=== PATIENT | female | born 1975 | race American Indian/Alaskan Native ===

== ENCOUNTER 2017-04-05 11:05 | Emergency (ER) | payer OTHER ==
[2017-04-05 11:06] VITALS: BMI 36.0
[2017-04-05 11:13] VITALS: BP 153/76; PULSE 101; RESP 18; TEMP 99.1; O2SAT 99
--- NOTE | 2017-04-05 12:43 | C.PDOC ---
History Of Present Illness 04/05/2017 Lashaun Rivas is a 42 year old female, whose past medical history includes diabetes and hypertension, presents to the emergency department complaining of right ear pain and itchiness for the past two days. Patient reports the pain became worse last night. Patient notes cleaning her ear with a Q-tip but it became worse. Patient denies any change in hearing, fever, throat pain, shortness of breath, nausea, vomiting, diarrhea, or other complaints. Time Seen by Provider: 04/05/17 11:20 Chief Complaint (Nursing): ENT Problem History Per: Patient History/Exam Limitations: None Onset/Duration Of Symptoms: Days (2 days) Current Symptoms Are (Timing): Still Present Quality (Ear): Redness, Other (itchiness) Symptoms Have Been: Continuous Past Medical History Reviewed: Historical Data, Nursing Documentation, Vital Signs Vital Signs: Last Vital Signs Temp 99.1 F 04/05/17 11:10 Pulse 101 H 04/05/17 11:10 Resp 18 04/05/17 11:10 BP 153/76 H 04/05/17 11:10 Pulse Ox 99 04/05/17 19:21 - Medical History PMH: Anemia, Arthritis, Diabetes, Gall Bladder Disease, HTN Family History: States: Unknown Family Hx - Social History Hx Tobacco Use: No Hx Alcohol Use: Yes Hx Substance Use: No - Immunization History Hx Tetanus Toxoid Vaccination: No Hx Influenza Vaccination: No Hx Pneumococcal Vaccination: No Review Of Systems Constitutional: Negative for: Fever ENT: Positive for: Ear Pain (right ear pain and itchiness). Negative for: Ear Discharge, Throat Pain, Throat Swelling Cardiovascular: Negative for: Chest Pain Respiratory: Negative for: Shortness of Breath Gastrointestinal: Negative for: Nausea, Vomiting, Abdominal Pain Genitourinary: Negative for: Dysuria Musculoskeletal: Negative for: Neck Pain Neurological: Negative for: Dizziness Physical Exam - Physical Exam Appears: Well, Non-toxic, No Acute Distress Skin: Normal Color, Warm, Dry Head: Atraumatic, Normacephalic Eye(s): bilateral: Normal Inspection, PERRL, EOMI Ear(s): Left: Normal, Right: TM Erythema (mild erythema to medial canal ) Nose: Normal Oral Mucosa: Moist Throat: Normal, No Erythema Neurological/Psych: Oriented x3, Normal Speech, Normal Motor, Normal Sensation ED Course And Treatment O2 Sat by Pulse Oximetry: 99 (room air) Pulse Ox Interpretation: Normal Medical Decision Making Medical Decision Makin04/05/2017 Impression: 42 year old female with right ear mild erythema to medial canal. Plan: -- Reassess and disposition Disposition - Disposition Referrals: Jeremy Alejandra [Medical Doctor] - Disposition: HOME/ ROUTINE Disposition Time: 12:41 Condition: STABLE Additional Instructions: Recommend no qtip, fingers/nails in ears. Use drops as prescribed. Take diphenhydramine 25 mg by mouth every 6 hours for itch- may cause drowsiness, no driving or operating machinery advised. Follow up with your PMD. Continue taking medication for diabetes and blood pressure. Prescriptions: DiphenhydrAMINE [Benadryl] 25 mg PO Q6 #30 cap Neomycin/Polymyxin/Hydrocortis [Cortisporin Otic Susp] 4 drop AD QID #1 bottle Instructions: Otitis Externa (ED) Forms: [employer] (Welsh) - Clinical Impression Clinical Impression: Otitis externa of right ear - Scribe Statement The provider has reviewed the documentation as recorded by the Scribe 04/05/2017 Scribe Attestation: Kelle Davidson MD Scribe Attestation: All medical record entries made by the Scribe were at my direction and personally dictated by me. I have reviewed the chart and agree that the record accurately reflects my personal performance of the history, physical exam, medical decision making, and the department course for this patient. I have also personally directed, reviewed, and agree with the discharge instructions and disposition.
--- NOTE | 2017-04-05 12:44 | C.PDOC ---
Time Seen by Provider: 04/05/17 11:20 Chief Complaint (Nursing): ENT Problem Past Medical History Vital Signs: Last Vital Signs Temp 99.1 F 04/05/17 11:10 Pulse 101 H 04/05/17 11:10 Resp 18 04/05/17 11:10 BP 153/76 H 04/05/17 11:10 Pulse Ox 99 04/05/17 11:10 - Medical History PMH: Anemia, Arthritis, Diabetes, Gall Bladder Disease, HTN Family History: States: Unknown Family Hx - Social History Hx Tobacco Use: No Hx Alcohol Use: Yes Hx Substance Use: No - Immunization History Hx Tetanus Toxoid Vaccination: No Hx Influenza Vaccination: No Hx Pneumococcal Vaccination: No ED Course And Treatment O2 Sat by Pulse Oximetry: 99 Disposition Counseled Patient/Family Regarding: Diagnosis, Need For Followup, Rx Given - Disposition Referrals: Jeremy Alejandra [Medical Doctor] - Disposition: HOME/ ROUTINE Disposition Time: 12:41 Condition: STABLE Additional Instructions: Recommend no qtip, fingers/nails in ears. Use drops as prescribed. Take diphenhydramine 25 mg by mouth every 6 hours for itch- may cause drowsiness, no driving or operating machinery advised. Follow up with your PMD. Continue taking medication for diabetes and blood pressure. Prescriptions: DiphenhydrAMINE [Benadryl] 25 mg PO Q6 #30 cap Neomycin/Polymyxin/Hydrocortis [Cortisporin Otic Susp] 4 drop AD QID #1 bottle Instructions: Otitis Externa (ED) Forms: [email or web address] (Danish) - Clinical Impression Clinical Impression: Otitis externa of right ear
== END 2017-04-05 12:54 | disposition home or self-care (01) ==
LOC: C.ER 11:05
DX: H60.91 Unspecified otitis externa, right ear (principal)

== ENCOUNTER 2017-05-06 10:16 | Emergency (ER) | payer OTHER ==
[2017-05-06 10:27] VITALS: BMI 38.7
[2017-05-06 10:29] VITALS: BP 130/76; TEMP 99.4
--- NOTE | 2017-05-06 10:54 | C.PDOC ---
History Of Present Illness 42 y/o female presents to ED with complaints of right ear discomfort "clogged feeling" for 2 weeks. Patient states initially she had itching to area, used fingernail to scratch inside but now with discomfort. Patient denies fever, discharge, hearing change or any other complaints at this time. R EAR DISCOMFORT "CLOGGED FEELING" X 2 WEEKS. PS INITIALLY HAD ITCH, USING FINGERNAIL TO SCRATCH INSIDE BUT NOW W DISCOMFORT. NO FEVER, DC, HEARING CHANGE. EXAM NAD HEENT R EAR +OTITIS EXTERNA, TM INTACT. L EAR WNL REMAINDER NEG Time Seen by Provider: 05/06/17 10:40 Chief Complaint (Nursing): ENT Problem History Per: Patient History/Exam Limitations: None Onset/Duration Of Symptoms: Days Current Symptoms Are (Timing): Still Present Past Medical History Reviewed: Historical Data, Nursing Documentation, Vital Signs Vital Signs: Last Vital Signs Temp 99.4 F 05/06/17 10:27 Pulse 72 05/06/17 11:07 Resp 18 05/06/17 11:07 BP 130/76 05/06/17 10:27 Pulse Ox 99 05/06/17 11:49 - Medical History PMH: HTN Surgical History: No Surg Hx Family History: States: No Known Family Hx - Social History Hx Alcohol Use: No Hx Substance Use: No - Immunization History Hx Tetanus Toxoid Vaccination: No Hx Influenza Vaccination: No Hx Pneumococcal Vaccination: No Review Of Systems Except As Marked, All Systems Reviewed And Found Negative. Constitutional: Negative for: Fever, Chills ENT: Positive for: Ear Pain. Negative for: Ear Discharge Skin: Negative for: Rash Physical Exam - Physical Exam Appears: No Acute Distress Skin: Normal Color, Warm, Dry, No Rash Head: Normacephalic Eye(s): bilateral: Normal Inspection Ear(s): Left: Normal, Right: Other (Otitis externa, TM intact) Nose: Normal Oral Mucosa: Moist Throat: Normal, No Erythema Neck: Normal ROM, Supple Chest: Symmetrical Extremity: Normal ROM, Capillary Refill (<2 seconds) Neurological/Psych: Oriented x3 ED Course And Treatment O2 Sat by Pulse Oximetry: 99 (RA) Pulse Ox Interpretation: Normal Disposition Counseled Patient/Family Regarding: Diagnosis, Need For Followup, Rx Given - Disposition Referrals: [facility] [Outside] [facility] [Outside] Jack Davidson MD [Staff Provider] - Disposition: HOME/ ROUTINE Disposition Time: 10:53 Condition: IMPROVED Prescriptions: Ciprofloxacin/Dexamethasone [Ciprodex 0.3%-0.1% 7.5 Ml] 4 drop OT BID #1 bottle Fluticasone Propionate [Flonase] 2 spr ERIC DAILY #1 bottle Instructions: Otitis Externa (ED) Forms: [employer] (Spanish) - Clinical Impression Clinical Impression: Otitis externa - Scribe Statement The provider has reviewed the documentation as recorded by the Sharoniblyla Gonsales All medical record entries made by the Sharoniblyla were at my direction and personally dictated by me. I have reviewed the chart and agree that the record accurately reflects my personal performance of the history, physical exam, medical decision making, and the department course for this patient. I have also personally directed, reviewed, and agree with the discharge instructions and disposition.
[2017-05-06 11:08] VITALS: PULSE 72; RESP 18
[2017-05-06 11:49] VITALS: O2SAT 99
== END 2017-05-06 11:08 | disposition home or self-care (01) ==
LOC: EDUNIT# 10:16 → C.ER 10:16
DX: H60.91 Unspecified otitis externa, right ear (principal)

== ENCOUNTER 2017-10-08 09:53 | Emergency (ER) | payer OTHER ==
[2017-10-08 09:54] VITALS: BMI 36.0
[2017-10-08 10:00] VITALS: BP 128/77; PULSE 80; RESP 18; TEMP 99; O2SAT 98
--- NOTE | 2017-10-08 10:22 | C.PDOC ---
History Of Present Illness 42 y/o female presents to the ER complaining of subjective fever, sore throat, and body aches which have been present for the past 3 days. Patient states that she has been visiting the [facility] for the last 3 days. Patient denies having nausea,vomiting, and diarrhea. Time Seen by Provider: 10/08/17 10:15 Chief Complaint (Nursing): Flu-like Symptoms History Per: Patient History/Exam Limitations: no limitations Onset/Duration Of Symptoms: Days Current Symptoms Are (Timing): Still Present Severity: Moderate Past Medical History Reviewed: Historical Data, Nursing Documentation, Vital Signs Vital Signs: Last Vital Signs Temp 99.0 F 10/08/17 09:58 Pulse 80 10/08/17 09:58 Resp 18 10/08/17 10:31 BP 128/77 10/08/17 09:58 Pulse Ox 98 10/08/17 10:24 - Medical History PMH: Anemia, Arthritis, Diabetes, Gall Bladder Disease, HTN Other Surgeries: Hx of surgeries Family History: States: No Known Family Hx - Social History Hx Tobacco Use: No Hx Alcohol Use: Yes Hx Substance Use: No - Immunization History Hx Tetanus Toxoid Vaccination: Yes Hx Influenza Vaccination: Yes Hx Pneumococcal Vaccination: No Review Of Systems Except As Marked, All Systems Reviewed And Found Negative. Constitutional: Positive for: Fever (subjective fever), Malaise. Negative for: Chills ENT: Positive for: Throat Pain Gastrointestinal: Negative for: Nausea, Vomiting, Diarrhea Physical Exam - Physical Exam Appears: Non-toxic, No Acute Distress, Other (obese) Skin: Normal Color, Warm Head: Atraumatic, Normacephalic Eye(s): bilateral: Normal Inspection Ear(s): Bilateral: Normal Nose: Normal Oral Mucosa: Moist Throat: Normal, No Erythema, No Exudate Neck: Supple Chest: Symmetrical Cardiovascular: Rhythm Regular Respiratory: Normal Breath Sounds, No Accessory Muscle Use, No Rales, No Rhonchi , No Wheezing Extremity: Normal ROM Neurological/Psych: Oriented x3, Normal Speech, Normal Motor, Normal Sensation ED Course And Treatment O2 Sat by Pulse Oximetry: 98 (RA) Pulse Ox Interpretation: Normal Medical Decision Making Medical Decision Making: mild viral syndrome symptoms for 3 days benign exam now [place] [facility] [place] ? results- no CPAP Disposition Doctor Will See Patient In The: Office Counseled Patient/Family Regarding: Studies Performed, Diagnosis - Disposition Referrals: [facility] [Outside] Disposition: HOME/ ROUTINE Disposition Time: 10:22 Condition: GOOD Additional Instructions: continue Dayquil/Nyquil (or equivalent) as needed for symptomatic relief. Follow-up in our outpatient Clinic as needed. Instructions: Viral Syndrome (DC) Forms: [employer] (French) - Clinical Impression Clinical Impression: Influenza-like illness - Scribe Statement The provider has reviewed the documentation as recorded by the Sharoniblyla Sandhu Provider Attestation: All medical record entries made by the Sharonibe were at my direction and personally dictated by me. I have reviewed the chart and agree that the record accurately reflects my personal performance of the history, physical exam, medical decision making, and the department course for this patient. I have also personally directed, reviewed, and agree with the discharge instructions and disposition.
== END 2017-10-08 10:31 | disposition home or self-care (01) ==
LOC: C.ER 09:53
DX: J11.1 Influenza due to unidentified influenza virus with other respiratory manifestations (principal)

== ENCOUNTER 2018-01-31 06:32 | Emergency (ER) | payer OTHER ==
[2018-01-31 06:32] VITALS: BMI 36.0
[2018-01-31 06:45] VITALS: BP 120/70; PULSE 82; RESP 14; TEMP 98.7; O2SAT 97
[2018-01-31] MEDS ORDERED: Amoxicillin-Clav 875-125 mg Tab PO STA (07:23)
--- NOTE | 2018-01-31 07:25 | C.PDOC ---
History Of Present Illness 43 y/o female presents to the ER complaining of subjective fever, sore throat gradually developed for the past 3 days, today developed some discomfort on swallow. Admits, (+) sick contact strep infection. Patient denies high fever, headache, dizziness, neck pain, drooling, dyspnea, cough, CP, SOB, wheezing, abd. pain, N/V/D, back pain, UTI sx. Ambulatory in ED , not in any apparent distress. Time Seen by Provider: 01/31/18 07:09 Chief Complaint (Nursing): ENT Problem History Per: Patient Past Medical History Reviewed: Historical Data, Nursing Documentation, Vital Signs Vital Signs: Last Vital Signs Temp 98.7 F 01/31/18 06:41 Pulse 82 01/31/18 06:41 Resp 14 01/31/18 06:41 BP 120/70 01/31/18 06:41 Pulse Ox 97 01/31/18 06:41 - Medical History PMH: Anemia, Arthritis, Diabetes, Gall Bladder Disease, HTN Family History: States: Unknown Family Hx - Social History Hx Tobacco Use: No Hx Alcohol Use: Yes Hx Substance Use: No - Immunization History Hx Tetanus Toxoid Vaccination: Yes Hx Influenza Vaccination: Yes Hx Pneumococcal Vaccination: No Review Of Systems Except As Marked, All Systems Reviewed And Found Negative. Constitutional: Negative for: Fever, Chills ENT: Positive for: Nose Discharge, Nose Congestion, Throat Pain, Throat Swelling. Negative for: Ear Discharge Cardiovascular: Negative for: Chest Pain, Palpitations Respiratory: Negative for: Cough, Shortness of Breath, Wheezing Gastrointestinal: Negative for: Nausea, Vomiting, Abdominal Pain, Diarrhea Genitourinary: Negative for: Dysuria Musculoskeletal: Negative for: Neck Pain, Back Pain Skin: Negative for: Rash Neurological: Negative for: Weakness, Numbness, Headache Physical Exam - Physical Exam Appears: Well, Non-toxic, No Acute Distress Skin: Normal Color, Warm, Dry, No Rash Head: Normacephalic Eye(s): bilateral: PERRL Ear(s): Bilateral: Normal Nose: No Flaring, Discharge (B/L nasal congestion with scant clear rhinorrhea) Oral Mucosa: Moist, No Drooling Tongue: Normal Appearing Lips: Normal Appearing Throat: Erythema (mod B/L), Exudate (scant B/L), No Drooling Neck: Trachea Midline, Supple Cardiovascular: Rhythm Regular Respiratory: No Decreased Breath Sounds, No Accessory Muscle Use, No Stridor, No Wheezing Gastrointestinal/Abdominal: Soft, No Tenderness, No Distention, No Guarding Back: No CVA Tenderness Extremity: Normal ROM, No Deformity, No Swelling Neurological/Psych: Oriented x3, Normal Speech, Normal Motor, Normal Sensation, Normal Reflexes ED Course And Treatment O2 Sat by Pulse Oximetry: 97 Pulse Ox Interpretation: Normal Progress Note: On re-eval, pt is afebrile, hemodynamicaly stable. NOn-toxic. TOlerate Po well in ED. PulseOx 97% RA. ENT: (+) acute pharyngitis. Uvula midline, no edema. Neck: SUpple, (-) meningeal sign. LUngs: CTA B/L, BS euqal B/L. ABd: Benign, (-) guarding, (-) rebound. Back: (-) CVA tenderness. Neurologicaly intact. Pt has clinical findings c/w acute pharyngitis s/p strep infection exposure. Pt advised. ref. to F/u with PMD in2 -3 days for re-mary. return if any new changes. Disposition Counseled Patient/Family Regarding: Studies Performed, Diagnosis, Need For Followup, Rx Given - Disposition Referrals: Sonali Lawler [Non-Staff] - Disposition: HOME/ ROUTINE Disposition Time: 07:24 Condition: STABLE Additional Instructions: Encourage fluids Take medication as prescribed Follow up with PMD In 2-3 days for re-evaluation. Return to ED if any worsening or new changes. Prescriptions: Amoxicillin/Clavulanate [Augmentin 875 MG-125 MG] 1 tab PO BID #14 tab Ibuprofen [Motrin Tab] 600 mg PO TID #20 tab Instructions: Sore Throat, Adult (DC) - Clinical Impression Clinical Impression: Pharyngitis
[2018-01-31] MEDS ORDERED: Amoxicillin-Clav 875-125 mg Tab PO ONE (07:35)
== END 2018-01-31 07:41 | disposition home or self-care (01) ==
LOC: C.ER 06:32
DX: J02.9 Acute pharyngitis, unspecified (principal); E11.9 Type 2 diabetes mellitus without complications; I10 Essential (primary) hypertension

== ENCOUNTER 2018-03-23 10:45 | Emergency (ER) | payer OTHER ==
[2018-03-23 10:51] VITALS: BMI 38.8
[2018-03-23 10:54] VITALS: BP 148/67; PULSE 91; RESP 18; TEMP 99.1; O2SAT 97
--- NOTE | 2018-03-23 11:36 | C.PDOC ---
History Of Present Illness 43 year old female presents to the ED c/o throat, lung irritation for the past 1 day. Patient states symptoms started after ammonia exposure. Patient has been coughing when exposed to heavy dust. Patient denies SOB, wheezing, CP, swelling , asthma, fever, chills. THROAT, LUNG IRRITATION X 1 DAY ONSET AFTER AMMONIA FUME EXPOSURE. PS HAS COUGHING WHEN EXPOSED TO HEAVY DUST. DENIES SOB, WHEEZE, CP, SWELLING, ASTHMA. EXAM NAD HEENT THROAT NEG LUNGS CTA B/L NO W/R/R Time Seen by Provider: 03/23/18 11:29 Chief Complaint (Nursing): Cough, Cold, Congestion History Per: Patient History/Exam Limitations: no limitations Onset/Duration Of Symptoms: Days (1) Current Symptoms Are (Timing): Still Present Location Of Pain: Throat Sick Contacts (Context): None Associated Symptoms: Cough. denies: Fever, Chills Ear Symptoms: Bilateral: None Recent travel outside of the [place]: No Additional History Per: Patient Past Medical History Reviewed: Historical Data, Nursing Documentation, Vital Signs Vital Signs: Last Vital Signs Temp 99.1 F 03/23/18 10:51 Pulse 91 H 03/23/18 10:51 Resp 18 03/23/18 10:51 BP 148/67 03/23/18 10:51 Pulse Ox 97 03/23/18 11:38 - Medical History PMH: Anemia, Arthritis, Diabetes, Gall Bladder Disease, HTN Surgical History: No Surg Hx Family History: States: Unknown Family Hx - Social History Hx Tobacco Use: No Hx Alcohol Use: Yes Hx Substance Use: No - Immunization History Hx Tetanus Toxoid Vaccination: Yes Hx Influenza Vaccination: Yes Hx Pneumococcal Vaccination: No Review Of Systems Constitutional: Negative for: Fever, Chills ENT: Positive for: Throat Pain, Throat Swelling. Negative for: Nose Discharge Cardiovascular: Negative for: Chest Pain, Palpitations Respiratory: Negative for: Cough, Shortness of Breath Skin: Negative for: Rash Neurological: Negative for: Weakness, Numbness Physical Exam - Physical Exam Appears: Non-toxic, No Acute Distress Skin: Normal Color, Warm, Dry Head: Atraumatic, Normacephalic Eye(s): bilateral: Normal Inspection Ear(s): Bilateral: Normal Nose: No Discharge Oral Mucosa: Moist Throat: Normal, No Erythema, No Exudate Neck: Normal ROM, Supple Chest: Symmetrical Cardiovascular: Rhythm Regular Respiratory: Normal Breath Sounds, No Rales, No Rhonchi, No Wheezing Extremity: Normal ROM, No Tenderness, No Swelling Neurological/Psych: Oriented x3, Normal Speech Gait: Steady ED Course And Treatment O2 Sat by Pulse Oximetry: 97 (On RA) Pulse Ox Interpretation: Normal Disposition Counseled Patient/Family Regarding: Diagnosis, Need For Followup, Rx Given - Disposition Referrals: [facility] [Outside] [facility] [Outside] Disposition: HOME/ ROUTINE Disposition Time: 11:34 Condition: GOOD Additional Instructions: STEAM ROOM USE DIRECTED. AVOID CLOSED OR DIRECT EXPOSURE TO AMMONIA Prescriptions: Dexamethasone [Decadron] 12 mg PO ONCE #2 tablet Forms: [employer] (Liberian), General Discharge Instructions - Clinical Impression Clinical Impression: Inhalation of noxious fumes, Cough - Scribe Statement The provider has reviewed the documentation as recorded by the Scribe Nando Marie All medical record entries made by the Scribe were at my direction and personally dictated by me. I have reviewed the chart and agree that the record accurately reflects my personal performance of the history, physical exam, medical decision making, and the department course for this patient. I have also personally directed, reviewed, and agree with the discharge instructions and disposition.
== END 2018-03-23 11:57 | disposition home or self-care (01) ==
LOC: C.ER 10:45
DX: T59.891A Toxic effect of other specified gases, fumes and vapors, accidental (unintentional), initial encounter (principal); R05 Cough